=== PATIENT | female | born 1960 | race Caucasian/White ===

== ENCOUNTER 2017-10-07 19:47 | Emergency (ER) | payer MEDICARE ==
[~2017-10-07] VITALS: Ht 157.4 cm; Wt 52.2 kg
[2017-10-07 20:35] LABS: BASO % 0.6 % (0.0-1.0); EOS # 0.1 10*3/uL (0.0-0.4); EOS % 1.7 % (1.0-4.0); HEMATOCRIT 39.4 % (37.0-47.0); LYMPH # 1.6 10*3/uL (1.3-4.4); LYMPH % 22.2 % (27.0-41.0); MEAN CELL VOLUME 102.9 fl (81.0-99.0); MEAN CORPUSCULAR HGB 33.9 pg (27.0-31.0); MEAN PLATELET VOLUME 10.5 fl (9.6-12.3); MONO # 0.5 10*3/uL (0.1-1.0); MONO % 7.2 % (3.0-9.0); NEUT # 4.9 10*3/uL (2.3-7.9); PLATELET COUNT AUTOMATED 139 10*3/uL (130-400); RED BLOOD COUNT 3.83 10*6/uL (4.10-5.10); RED CELL DISTRI WIDTH 13.6 % (0-14.5); WHITE BLOOD COUNT 7.3 10*3/uL (4.8-10.8)
[2017-10-07 20:50] LABS: BUN 10 mg/dl (7-24); CHLORIDE 102 mmol/L (98-107); CREATININE 0.73 mg/dL (0.55-1.02); POTASSIUM 4.6 mmol/L (3.5-5.1); SODIUM 136 mmol/L (136-145)
[2017-10-07] MEDS ORDERED: CLINDAMYCIN HC300 MG PO (22:21)
[2017-10-07] MEDS ORDERED: NORCO 5-325 TA1 EACH PO (22:22)
[2017-10-07] MEDS ORDERED: Motrin,Rufen800 MG PO (22:22)
== END 2017-10-07 22:27 | disposition home or self-care (01) ==
LOC: ED 19:47
PROVIDERS: Physician Assistant
DX: L03.211 Cellulitis of face (principal); F17.200 Nicotine dependence, unspecified, uncomplicated; Z88.0 Allergy status to penicillin; Z88.1 Allergy status to other antibiotic agents

== ENCOUNTER 2022-01-06 14:08 | Emergency (ER) | payer MEDICARE ==
[~2022-01-06] VITALS: Wt 54.4 kg
[~2022-01-06 14:08] MED LIST: CLINDAMYCIN HC300 MG PO; Motrin,Rufen800 MG PO; NORCO 5-325 TA1 EACH PO
[2022-01-06] MEDS ORDERED: LEVOFLOXACIN750 M2 PO (18:13)
[2022-01-06] MEDS ORDERED: PREDNISONE50 MG PO (18:24)
== END 2022-01-06 18:35 | disposition home or self-care (01) ==
LOC: ED 14:08
DX: J20.9 Acute bronchitis, unspecified (principal); F17.200 Nicotine dependence, unspecified, uncomplicated; Z88.0 Allergy status to penicillin; Z88.1 Allergy status to other antibiotic agents; Z98.890 Other specified postprocedural states